=== PATIENT | male | born 1935 | race Caucasian/White ===

== ENCOUNTER 2020-03-18 13:33 | Emergency (ER) | payer OTHER ==
[~2020-03-18] VITALS: Ht 175.3 cm; Wt 66.7 kg
[~2020-03-18 13:33] MED LIST: (None)50 MG PO; ABAT250V; ASPI81CH PO; ATOR40TA PO; Aspirin EC325 MG PO; Aspirin EC81 MG PO; Augmentin 875-1 EACH PO; CILO100 PO; CLOP75 PO; DULO30 PO; FINA5 PO; GABA300 PO; GINKGO BILOBA120 MG PO; Ginkgo Biloba120 MG PO; HYDACE10B PO; MULTI-VITAMIN1 EAC2 PO; Norco 5-325 Ta1 EACH PO; PLAVIX PO; SIMV40 PO; TERA5 PO; ZINC15 PO
== END 2020-03-18 15:32 | disposition home or self-care (01) ==
LOC: ER 13:33
DX: M54.16 Radiculopathy, lumbar region (principal); I73.9 Peripheral vascular disease, unspecified; Z79.899 Other long term (current) drug therapy; Z79.82 Long term (current) use of aspirin; Z79.02 Long term (current) use of antithrombotics/antiplatelets
CPT/HCPCS: 72100; 73502; 99283-25

== ENCOUNTER 2021-09-17 05:59 | Day surgery (SDC) | payer OTHER ==
[~2021-09-17] VITALS: Ht 175.3 cm; Wt 67.2 kg
[~2021-09-17 05:59] MED LIST changes: -ASPI81CH PO; -CILO100 PO; +CILOSTAZOL50 M1 PO; -Norco 5-325 Ta1 EACH PO; -TERA5 PO
[2021-09-17] MEDS ORDERED: METO25ER PO (06:34)
[2021-09-17 07:56] LABS: SARS-Cov-2 (COVID-19) PCR, MMC NEGATIVE (NEGATIVE)
--- NOTE | 2021-09-17 13:04 | NUR ---
1245 PATIENT IS SITTING STRAIGHT UP IN THE BED ADN C/O LUQ/LLQ PAIN. LEFT FEMORAL SITE SOFT BUT TENDER. MANUAL PRESURE APPLIED. VVS. 10/10 PAIN NOTED FROM THE PATIENT. CALLED DR. HUNT TO THE BEDSIDE HE ASSESSED THE PATIENT AND ORDERED A CT OR THE ABD/PELVIS W/O CONTRAST TO R/O RETROPERITONEAL BLEED. ORDER PLACED AND CALLED [employer] ASSOCIATE. CONTINUE TO MONITOR PATIENT.
--- NOTE | 2021-09-17 13:06 | NUR ---
[address] WITH BASE WAD OPERATOR ADJUSTER. VVS. PAIN STILL 8/10 TO THE LUQ/LLQ. LEFT GROIN STIE UNCHANGED. CDI, NO HEMATOMA.
--- NOTE | 2021-09-17 13:17 | NUR ---
AT THE BEDSIDE. PATIENT IS BACK FROM CT AND DR. HUNT WILL REVIEW THE FILMS.
[2021-09-17 13:50] LABS: BASOPHILS ABSOLUTE AUTO 0.08 K/mm3 (0.00-0.23); BASOPHILS PERCENT AUTO 1 % (0-2); EOSINOPHILS ABSOLUTE AUTO 0.35 K/mm3 (0.00-0.68); EOSINOPHILS PERCENT AUTO 3 % (0-6); Hematocrit 34.9 % (37.0-53.0); Hemoglobin 11.5 g/dL (13.5-17.5); IMMATURE GRAN ABSOLUTE AUTO 0.03 K/mm3 (0.00-0.10); IMMATURE GRAN PERCENT AUTO 0 % (0-1); LYMPHOCYTES ABSOLUTE AUTO 3.16 K/mm3 (0.84-5.20); LYMPHOCYTES PERCENT AUTO 29 % (21-46); MONOCYTES PERCENT AUTO 7 % (4-13); Mean Corpuscular HGB 31.3 pg (26.0-34.0); Mean Corpuscular Volume 95 fL (80-100); Mean Platelet Volume 10.5 fL (9.1-12.4); NEUTROPHILS ABSOLUTE AUTO 6.61 K/mm3 (1.96-9.15); NEUTROPHILS PERCENT AUTO 60 % (41-73); Platelet Count 243 K/mm3 (150-400); RDW Coefficient Variation 14.2 % (11.7-14.2); RDW Standard Deviation 49.5 fL (35.1-46.3); Red Blood Cell Count 3.67 M/mm3 (4.30-5.90); White Blood Cell Count 11.03 K/mm3 (4.00-11.30)
--- NOTE | 2021-09-17 14:52 | NUR ---
DR. CALHOUN AND DR. HUNT AT THE BEDSIDE. NS BOLUS STARTED PER MD ORDER. LAB TO THE BEDSIDE FOR TYPE AND SCREEN AND SECOND PIV STARTED FOR POTENTIAL BLOOD TRANSFUSION.
--- NOTE | 2021-09-17 15:18 | NUR ---
1400-present - Pt sitting up after eating lunch and called to come get pt to go home, sudden L lwr abd pain, laid supine, put man prssr to L groin access site, Dr Eden notified and on seeing pt ordered CT which when reviewed showed large hematoma in L abd/pelvic region. Fem stop placed per V/O along with increments of Versed and Fentanyl per V/O. Versed 2mg/Fentanyl 100 mcg given to this point and pt tolerating Femstop OK. Dr Lopez in, reviewed CT, V/O for Protamine and type and cross fo r2 units of PRBC's. Gave 5mg Protamine q 5 min per V/O, pt kenny well. 15 Mg Protamine IV total given. 1L IV fluids given for hypotension, BP's stable now. Pt to be transfered to PCU shortly who will give the 2u PRBC's when ready.
[2021-09-17] MEDS ORDERED: Norco 5-325 Ta1 EACH PO (17:39)
[2021-09-17] MEDS ORDERED: ASPI81CH PO (17:39)
[2021-09-17] MEDS ORDERED: TERA5 PO (17:39)
--- NOTE | 2021-09-17 19:20 | NUR ---
RECEIVED FROM [facility]. VSS. NO C/O PAIN. AFEBRILE. DTV. NO BM. TRANSFUSING 1ST UNIT PRBC. PENDING 2ND UNIT PRBC. REPEAT LABS ORDERED. FEMSTOP REMOVED- NO S/S OF NEW BLEEDING NOTED. FREQUENT ROUNDS TO ENSURE PT SAFETY. PT IN NO APPARENT DISTRESS AT THIS TIME. WILL CONTINUE TO MONITOR UNTIL TRANSFER OF CARE.
[2021-09-18 01:17] LABS: BASOPHILS ABSOLUTE AUTO 0.05 K/mm3 (0.00-0.23); BASOPHILS PERCENT AUTO 0 % (0-2); EOSINOPHILS ABSOLUTE AUTO 0.26 K/mm3 (0.00-0.68); EOSINOPHILS PERCENT AUTO 2 % (0-6); Hematocrit 34.3 % (37.0-53.0); Hemoglobin 11.7 g/dL (13.5-17.5); IMMATURE GRAN ABSOLUTE AUTO 0.02 K/mm3 (0.00-0.10); IMMATURE GRAN PERCENT AUTO 0 % (0-1); LYMPHOCYTES ABSOLUTE AUTO 1.68 K/mm3 (0.84-5.20); LYMPHOCYTES PERCENT AUTO 14 % (21-46); MONOCYTES ABSOLUTE AUTO 0.95 K/mm3 (0.16-1.47); MONOCYTES PERCENT AUTO 8 % (4-13); Mean Corpuscular HGB 31.5 pg (26.0-34.0); Mean Corpuscular HGB Conc 34.1 g/dL (31.5-36.5); Mean Corpuscular Volume 92 fL (80-100); Mean Platelet Volume 9.9 fL (9.1-12.4); NEUTROPHILS ABSOLUTE AUTO 9.04 K/mm3 (1.96-9.15); NEUTROPHILS PERCENT AUTO 75 % (41-73); Platelet Count 196 K/mm3 (150-400); RDW Coefficient Variation 14.1 % (11.7-14.2); Red Blood Cell Count 3.72 M/mm3 (4.30-5.90)
[2021-09-18 01:37] LABS: Alanine Aminotransfer (ALT/SGP 13 U/L (12-78); Albumin, Blood 2.9 g/dL (3.4-5.0); Albumin/Globulin Ratio 1.1 (0.8-1.8); Alk Phos 52 U/L (50-136); Anion Gap 4 mmol/L (6-16); Aspartate Aminotrans (AST/SGOT 13 U/L (12-37); Blood Urea Nitrogen 25 mg/dL (8-24); Bun/Creatinine Ratio 22.3 (12.0-20.0); CO2, Blood 27 mmol/L (21-32); Chloride, Blood 108 mmol/L (98-108); Creatinine, Blood 1.12 mg/dL (0.60-1.20); Globulin, Blood 2.6 g/dL (2.2-4.0); Glomerular Filtration Rate >60 (60-); Glucose, Blood 97 mg/dL (70-99); Potassium, Blood 4.6 mmol/L (3.5-5.5); Sodium, Blood 139 mmol/L (136-145); Total Protein, Blood 5.5 g/dL (6.4-8.2)
--- NOTE | 2021-09-18 05:34 | NUR ---
SHIFT SUMMARY PT ALERT AND ORIENTED X4. TWO UNITS OF BLOOD INFUSED THIS SHIFT. SURGICAL SITES ON RIGHT AND LEFT GROIN C/D/I. PT HAS BEEN ON RA MAINTAINING SATS OVER 95%. HR SB 40'S AND 5O'S. BP STABLE AFTER MIDNIGHT. VOIDING INDEPENDENTLY WITH BEDSIDE URINAL. IN BED RESTING WITH CALL ALARM AT SIDE
[2021-09-18 08:32] LABS: Hematocrit 35.3 % (37.0-53.0); Hemoglobin 11.9 g/dL (13.5-17.5)
--- NOTE | 2021-09-18 10:37 | NUR ---
AM NOTE THIS NURSE ASSESSED BOTH RIGHT AND LEFT ANGION ACCESS SITE THIS AM WITH GLASSWARE FINISHER NURSE MATT, SITES REMAIN UNCHANGED FROM PREVIOUS ASSESSMENT. LEFT ANGIO SITE HAS SOME DRIED BLOOD UNDER CHG DRESSING, RIGHT SITE NO DRIED BLOOD NOTED. PT REPORTS SLIGHT TENDERNESS AT LEFT SITE. PT DENIES CHEST PAIN/PRESSURE. BILATERAL LOWER EXTREMETY CAPILLARY REFILL 1+ AND ARE SLIGHTLY COOL TO TOUCH. WILL CONTINUE TO MONITOR. PT NOW SLEEPING, CALL LIGHT IN REACH.
== END 2021-09-18 12:30 | disposition home or self-care (01) ==
LOC: MHTC 05:59 → PCU 05:59 → MHTC 06:30 → PCU 15:58 → MHTC 09-18 12:30
PROVIDERS: Internal Medicine; Radiology Diagnostic Radiology
DX: I70.213 Atherosclerosis of native arteries of extremities with intermittent claudication, bilateral legs (principal); E78.5 Hyperlipidemia, unspecified; N40.0 Benign prostatic hyperplasia without lower urinary tract symptoms; I50.32 Chronic diastolic (congestive) heart failure; J44.9 Chronic obstructive pulmonary disease, unspecified; Z79.891 Long term (current) use of opiate analgesic; Z87.891 Personal history of nicotine dependence; Z79.899 Other long term (current) drug therapy; Z20.822 Contact with and (suspected) exposure to COVID-19
CPT/HCPCS: 36140; 36415; 37224; 37228; 74176; 75710; 76937; 80053; 85014; 85018; 85025; 86850; 86900; 86901; 86923; 93005; 93010; 99152; 99153; A9270; C1725; C1769; C1887; C1894; C2623; J0360; J1644; J2250; J3010; J7030; J7040; J7050; P9016; Q9967; U0004

== ENCOUNTER 2022-03-04 12:32 | Day surgery (SDC) | payer OTHER ==
[~2022-03-04] VITALS: Ht 175.3 cm; Wt 60.8 kg
[~2022-03-04 12:32] MED LIST changes: +ASPI81CH PO; +METO25ER PO; +Norco 5-325 Ta1 EACH PO; +TERA5 PO
[2022-03-04] MEDS ORDERED: XARELTO20 MG (12:56)
[2022-03-04] MEDS ORDERED: ASPIR 8181 M1 (12:56)
== END 2022-03-04 15:00 | disposition home or self-care (01) ==
LOC: ORSCSDS 12:32
PROVIDERS: Surgery
PROC: 0DBH8ZX Excision of Cecum, Via Natural or Artificial Opening Endoscopic, Diagnostic (ICD-10-PCS; principal; 2022-03-04 13:30)
PROC: 0DJ08ZZ Inspection of Upper Intestinal Tract, Via Natural or Artificial Opening Endoscopic (ICD-10-PCS; principal; 2022-03-04 13:30)
DX: R19.4 Change in bowel habit (principal); R10.84 Generalized abdominal pain; R93.5 Abnormal findings on diagnostic imaging of other abdominal regions, including retroperitoneum; D12.0 Benign neoplasm of cecum; K31.7 Polyp of stomach and duodenum; K57.30 Diverticulosis of large intestine without perforation or abscess without bleeding; I10 Essential (primary) hypertension; I73.9 Peripheral vascular disease, unspecified; Z79.899 Other long term (current) drug therapy
CPT/HCPCS: 88305; J2704; J7120

== ENCOUNTER → 2023-03-05 | Outpatient (CLI) | payer OTHER ==
[~2023-03-05] MED LIST changes: +ASPIR 8181 M1; +PROTONIX PO; +SULTRIDS PO; +XARELTO20 MG PO
== END ==
LOC: LAB 05:30 → LAB SHORT 05:30
DX: K86.1 Other chronic pancreatitis (principal)
CPT/HCPCS: 82653

== ENCOUNTER 2023-04-16 16:15 | Emergency (ER) | payer OTHER ==
[~2023-04-16] VITALS: Ht 175.3 cm; Wt 61.2 kg
[~2023-04-16 16:15] MED LIST changes: +ATORVASTATIN CA20 MG PO
[2023-04-16 16:45] VITALS: BP 133/63
[2023-04-16] MEDS ORDERED: Neurontin 100100 MG PO (18:15)
== END 2023-04-16 18:31 | disposition home or self-care (01) ==
LOC: ER 16:15
DX: M54.50 Low back pain, unspecified (principal); G89.29 Other chronic pain; R26.2 Difficulty in walking, not elsewhere classified; Z79.02 Long term (current) use of antithrombotics/antiplatelets
CPT/HCPCS: 99283